=== PATIENT | female | born 1985 | race Asian ===

== ENCOUNTER 2023-02-16 06:53 | Outpatient (CLI) | payer OTHER ==
--- NOTE | 2023-02-16 10:07 | Ultrasound Report ---
PROCEDURE: OB First Trimester w/TV INDICATIONS: POSITIVE TEST OUTSIDE/PRIOR DATING DATA: Last menstrual period (LMP): 12/16/2022. LMP-based estimated date of delivery (AIDEN): 09/22/2023. First dating scan (date and location): Today's exam. Estimated date of delivery (AIDEN) from first dating scan: 09/21/2023. TECHNIQUE: Real-time scanning was performed of the fetus and maternal pelvic organs, with image documentation. Endovaginal scanning was also performed to better visualize the fetus and maternal ovaries. COMPARISON: None. FINDINGS: Intrauterine gestational sac present. Embryo: Present, measuring 2.3 cm, corresponding to 9 weeks 0 days. Heart rate: 171 bpm. Other: No perigestational fluid collection. Measurement variability in dating: +/- 4 weeks by LMP, +/- 7 days by mean sac diameter (use before 6 weeks gestation if crown-rump length not able to be measured), +/- 5 days by crown-rump length (6-12 weeks gestation). Maternal organs: Ovaries appear within normal limits. IMPRESSION: Single living intrauterine at 9 weeks 0 days, AIDEN of 04/21/2024. Reviewed by: Dc Parnell on 02/16/2023 10:05 AM PDT Approved by: Dc Parnell on 02/16/2023 10:05 AM PDT Station ID: [id number]
== END 2023-02-16 06:54 | disposition home or self-care (01) ==
LOC: DI 06:53
PROVIDERS: ATTEND Nurse Practitioner
DX: Z34.81 Encounter for supervision of other normal pregnancy, first trimester (principal)

== ENCOUNTER 2023-03-13 16:49 | Outpatient (CLI) | payer OTHER ==
[2023-03-13 17:19] LABS: BASOPHILS % (AUTO) 0.3 %; EOSINOPHILS # (AUTO) 0.3 10^3/uL (0.0-0.7); EOSINOPHILS % (AUTO) 2.6 %; HCT - HEMATOCRIT 36.7 % (37.0-47.0); HGB - HEMOGLOBIN 12.6 g/dL (12.0-16.0); LYMPHOCYTES # (AUTO) 2.3 10^3/uL (1.5-3.5); LYMPHOCYTES % (AUTO) 24.7 %; MEAN CORPUSCULAR HGB CONC 34.3 g/dL (32.0-36.0); MEAN CORPUSCULAR VOLUME 87.4 fL (81.0-99.0); MEAN PLATELET VOLUME 8.9 fL (7.9-10.8); MONOCYTES # (AUTO) 0.5 10^3/uL (0.0-1.0); MONOCYTES % (AUTO) 5.4 %; NEUTROPHILS # (AUTO) 6.3 10^3/uL (1.5-6.6); NEUTROPHILS % (AUTO) 66.2 %; PLT - PLATELET COUNT 281 10^3/uL (130-450); RED CELL DISTRIBUTION WIDTH 11.9 % (12.0-15.0); WHITE BLOOD COUNT 9.5 x10^3/uL (4.8-10.8)
[2023-03-14 03:09] LABS: HCV AB Non Reactive (Non Reactive)
[2023-03-14 05:12] LABS: HIV SCREEN 4TH GENERATION Non Reactive (Non Reactive)
[2023-03-14 06:11] LABS: HBsAG SCREEN Negative (Negative); RPR Non Reactive (Non Reactive)
[2023-03-14 09:09] LABS: VARICELLA-ZOSTER AB IGG 1141 index (Immune >165)
== END 2023-03-13 16:50 | disposition home or self-care (01) ==
LOC: LAB 16:49
PROVIDERS: ATTEND Nurse Practitioner
DX: Z34.80 Encounter for supervision of other normal pregnancy, unspecified trimester (principal); Z36.89 Encounter for other specified antenatal screening
CPT/HCPCS: 36415; 85025; 86592; 86762; 86787; 86803; 86850; 86900; 86901; 87340; 87389

== ENCOUNTER 2023-03-14 08:00 | Outpatient (CLI) | payer OTHER ==
[2023-03-14 12:45] LABS: BILIRUBIN,URINE NEGATIVE (NEGATIVE); GLUCOSE, URINE (UA) NEGATIVE (NEGATIVE); KETONES,URINE (UA) NEGATIVE (NEGATIVE); LEUKOCYTE ESTERASE, URINE NEGATIVE (NEGATIVE); NITRITE,URINE NEGATIVE (NEGATIVE); OCCULT BLOOD,URINE NEGATIVE (NEGATIVE); PH,URINE 6.5 PH (5.0-7.5); PROTEIN,URINE NEGATIVE (NEGATIVE); UROBILINOGEN,URINE 0.2 (NORMAL) E.U./dL (NORMAL)
[2023-03-14 12:59] LABS: AMORPHOUS SEDIMENT,UR Moderate /LPF; BACTERIA,URINE Few /HPF (None Seen); CLARITY,URINE SL. CLOUDY (CLEAR); CRYSTALS,URINE 3-5 Calcium Oxalate /LPF; RBC,URINE 0-5 /HPF (0-5); SQUAMOUS EPITHELIAL CELL,UR FEW Squamous (<= Few); WBC,URINE 0-3 /HPF (0-5)
[2023-03-14 20:51] LABS: CHLAMYDIA TRACHOMATIS DNA NEGATIVE (NEGATIVE); NEISSERIA GONORRHOEAE DNA NEGATIVE (NEGATIVE); TRICHOMONAS VAGINALIS DNA NEGATIVE (NEGATIVE)
== END 2023-03-14 23:59 | disposition home or self-care (01) ==
LOC: LAB.WC 08:00
PROVIDERS: ATTEND Nurse Practitioner
DX: R39.15 Urgency of urination (principal); Z11.3 Encounter for screening for infections with a predominantly sexual mode of transmission
CPT/HCPCS: 81001; 87086; 87491; 87591; 87661

== ENCOUNTER 2023-03-14 16:48 | Outpatient (CLI) | payer OTHER | END 2023-03-14 16:49 | disposition home or self-care (01) | LOC: LAB 16:48 | PROVIDERS: ATTEND Nurse Practitioner | DX: Z36.8A Encounter for antenatal screening for other genetic defects (principal) ==

== ENCOUNTER 2023-05-08 16:44 | Outpatient (CLI) | payer OTHER ==
--- NOTE | 2023-05-09 21:28 | Ultrasound Report ---
PROCEDURE: OB Detailed Eval INDICATIONS: SUPERVISION OF NORMAL OUTSIDE/PRIOR DATING DATA: Last menstrual period (LMP): 12/16/2022. LMP-based estimated date of delivery (AIDEN): 09/22/2023. First dating scan (date and location): 02/16/2023. Estimated date of delivery (AIDEN) from first dating scan: 09/21/2023. The below data below was generated using the ultrasound AIDEN of 09/21/2023 TECHNIQUE: Real-time scanning was performed of the fetus, with image documentation and biometric measurements. COMPARISON: OB ultrasound 05/08/2023 FINDINGS: General: A single living intrauterine gestation is present. Presentation: Vertex Placenta: Placental position is anterior, without previa. Amniotic fluid index: 13.7 cm, within normal limits for gestational age. heart rate: 141 beats per minute. Maternal cervical canal: 3.7 cm long; normal length is 2.5 cm or more. biometrics: Biparietal diameter: 4.8 cm 20 weeks 4 days Head circumference: 18.9 cm 20 weeks 4 days Abdominal circumference: 15.8 cm 20 weeks 6 days Femur length: 3.9 cm 20 weeks 5 days Estimated gestational age from initial scan: 20 weeks 4 days Composite gestational age from present scan: 21 weeks 0 days Estimated weight and percentile: 434 g 92nd percentile Measurement variability in biometric dating: +/- 10 days from 12-20 weeks gestation, +/- 2 weeks from 20-30 weeks gestation, +/- 3 weeks at 30 weeks gestation or later. Anatomic survey: Neuro: Ventricles are normal at less than 10 mm. Cisterna magna is normal at 3-11 mm. Cerebellum i s normal in size and morphology. Nuchal skin fold: Normal at less than 6 mm between 14 and 20 weeks gestational age. Face: Nose and lips, facial profile are normal. Spine: Not well seen. Heart: 4-chambered heart and ventricular outflow tracts are suboptimally visualized.. Diaphragm: Diaphragm is intact. Stomach: Left-sided stomach is present. Kidneys: No hydronephrosis. Normal is less than 5 mm in 2nd trimester, less than 7 mm in 3rd trimester. Cord: 3 vessel cord has orthotopic insertion. Bladder: Normal in size. Extremities: All 4 extremities are visualized. IMPRESSION: Single live intrauterine with ultrasound gestational age today of 21 weeks 0 days. Spine, 4 chambered heart and outflow tracts are suboptimally visualized. Recommend follow-up imaging for further evaluation. weight is at the 92nd percentile. Recommend continued interval monitoring for potential develop ing macrosomia. Reviewed by: Lilia Mejia MD on 05/09/2023 9:27 PM PDT Approved by: Lilia Mejia MD on 05/09/2023 9:27 PM PDT Station ID: [id number]
== END 2023-05-08 16:45 | disposition home or self-care (01) ==
LOC: DI 16:44
PROVIDERS: ATTEND Nurse Practitioner
DX: Z34.82 Encounter for supervision of other normal pregnancy, second trimester (principal); Z36.8A Encounter for antenatal screening for other genetic defects

== ENCOUNTER 2023-05-11 16:05 | Outpatient (CLI) | payer OTHER ==
[2023-05-11 20:37] LABS: ESTIMATED AVERAGE GLUCOSE 97 mg/dL (70-100)
[2023-05-16 13:10] LABS: AFP MOM See interpretation. (.); AFP VALUE 58.1 ng/mL (.); GEST. AGE ON COLLECTION DATE 20.9 weeks (.); GESTAT. AGE METHOD EDD (.); INSULIN DEP DIABETES No (.); MULTIPLE GESTATION No (.); OPEN SPINA BIFIDA RISK 1 IN See interpretation. (.); RACE Other (.); RESULTS Report (.); TEST RESULTS See interpretation. (.)
== END 2023-05-11 16:06 | disposition home or self-care (01) ==
LOC: LAB 16:05
PROVIDERS: ATTEND Nurse Practitioner
DX: O99.891 Other specified diseases and conditions complicating pregnancy (principal); R35.0 Frequency of micturition; Z36.8A Encounter for antenatal screening for other genetic defects; Z36.89 Encounter for other specified antenatal screening
CPT/HCPCS: 36415; 82105; 83036

== ENCOUNTER 2023-05-23 16:43 | Outpatient (CLI) | payer OTHER ==
--- NOTE | 2023-05-24 12:07 | Ultrasound Report ---
PROCEDURE: OB F/U or Repeat INDICATIONS: SUPERVISION OF OUTSIDE/PRIOR DATING DATA: Last menstrual period (LMP): 12/16/2022. LMP-based estimated date of delivery (AIDEN): 09/22/2023. First dating scan (date and location): 02/16/2023. Estimated date of delivery (AIDEN) from first dating scan: 09/21/2023. The below data below was generated using the ultrasound AIDEN of 09/21/2023 TECHNIQUE: Real-time scanning was performed of the fetus, with image documentation and biometric measurements. Endovaginal scanning: Not performed. COMPARISON: 05/08/2023 FINDINGS: General: A single living intrauterine gestation is present. Presentation: Vertex Placenta: Placental position is anterior, without previa. Amniotic fluid index: 11.2 cm, within normal limits for gestational age. Largest vertical pocket me asured 3.4 cm heart rate: 141 beats per minute. Maternal cervical canal: 3.8 cm long; normal length is 2.5 cm or more. Estimated gestational age : 22 weeks and 5 days Other: Overall, better visualization of previous limited evaluation of the spine and cardiac st ructures. On today's study, study is no somewhat limited for evaluation of the left ventricular outfl ow tract. However, grossly normal appearance of the spine, right ventricular outflow tract, and umbilical cord. No definite abnormalities identified in the left ventricular for tract. Incidental n ote of a nuchal cord. IMPRESSION: 1. Single living intrauterine gestation with estimated gestational age of approximately 22 weeks and 5 days. Improved but still mildly limited evaluation of the anatomic structures secondary to fe zeeshan positioning. Overall, the spine, right ventricular outflow tract, left ventricular outflow tract, and umbilical cord appear unremarkable without gross abnormalities. The left ventricular outfl ow tract is the most limited structure visualized on today's examination. 2. Incidental note of a nuchal cord. Reviewed by: Edgardo Hernandez MD on 05/24/2023 12:06 PM PDT Approved by: Edgardo Hernandez MD on 05/24/2023 12:06 PM PDT Station ID: [id number]
== END 2023-05-23 16:44 | disposition home or self-care (01) ==
LOC: DI 16:43
PROVIDERS: ATTEND Nurse Practitioner
DX: O09.522 Supervision of elderly multigravida, second trimester (principal); Z3A.22 22 weeks gestation of pregnancy

== ENCOUNTER 2023-06-08 09:50 | Outpatient (CLI) | payer OTHER ==
[2023-06-08 11:18] LABS: HCT - HEMATOCRIT 35.1 % (37.0-47.0); HGB - HEMOGLOBIN 11.8 g/dL (12.0-16.0); MEAN CORPUSCULAR HEMOGLOBIN 29.9 pg (27.0-31.0); MEAN CORPUSCULAR HGB CONC 33.6 g/dL (32.0-36.0); MEAN CORPUSCULAR VOLUME 88.9 fL (81.0-99.0); MEAN PLATELET VOLUME 8.7 fL (7.9-10.8); RED BLOOD COUNT 3.95 10^6/uL (4.20-5.40); RED CELL DISTRIBUTION WIDTH 11.9 % (12.0-15.0); WHITE BLOOD COUNT 9.6 x10^3/uL (4.8-10.8)
== END 2023-06-08 09:51 | disposition home or self-care (01) ==
LOC: LAB 09:50
PROVIDERS: ATTEND Nurse Practitioner
DX: O09.522 Supervision of elderly multigravida, second trimester (principal); Z36.8A Encounter for antenatal screening for other genetic defects
CPT/HCPCS: 36415; 82950; 85027

== ENCOUNTER 2023-06-09 07:00 | Outpatient (CLI) | payer OTHER ==
--- NOTE | 2023-06-09 15:53 | Ultrasound Report ---
PROCEDURE: OB F/U or Repeat INDICATIONS: SUPERVISION OF OUTSIDE/PRIOR DATING DATA: Last menstrual period (LMP): 12/16/2022. LMP-based estimated date of delivery (AIDEN): 09/22/2023. First dating scan (date and location): 02/16/2023. Estimated date of delivery (AIDEN) from first dating scan: 09/21/2023. The below data below was generated using the ultrasound AIDEN of 09/21/2023 TECHNIQUE: Real-time scanning was performed of the fetus, with image documentation and biometric measurements. COMPARISON: OB ultrasound 05/23/2023 FINDINGS: General: A single living intrauterine gestation is present. Presentation: Vertex Placenta: Placental position is anterior, without previa. Amniotic fluid index: 14.6 cm, within normal limits for gestational age. heart rate: 135 beats per minute. Maternal cervical canal: 3.2 cm long; normal length is 2.5 cm or more. biometrics: Estimated gestational age from initial scan: 25 weeks 1 day Other: Not applicable. IMPRESSION: Single live intrauterine . Outflow tracts are within normal limits. Reviewed by: Lilia Mejia MD on 06/09/2023 3:51 PM PST Approved by: Lilia Mejia MD on 06/09/2023 3:51 PM PST Station ID: [id number]
== END 2023-06-09 07:01 | disposition home or self-care (01) ==
LOC: DI 07:00
PROVIDERS: ATTEND Nurse Practitioner
DX: O09.522 Supervision of elderly multigravida, second trimester (principal); Z3A.25 25 weeks gestation of pregnancy